=== PATIENT | female | born 1940 | race Caucasian/White ===

== ENCOUNTER 2017-04-03 07:52 | Outpatient (CLI) | payer MEDICARE ==
[2017-04-03 16:17] LABS: BASOPHILS % (AUTO) 0.5 %; EOSINOPHILS # (AUTO) 0.2 10^3/uL (0.0-0.7); EOSINOPHILS % (AUTO) 2.4 %; HCT - HEMATOCRIT 34.6 % (37.0-47.0); HGB - HEMOGLOBIN 11.5 g/dL (12.0-16.0); LYMPHOCYTES # (AUTO) 1.8 10^3/uL (1.5-3.5); LYMPHOCYTES % (AUTO) 20.6 %; MEAN CORPUSCULAR HEMOGLOBIN 29.4 pg (27.0-31.0); MEAN CORPUSCULAR HGB CONC 33.3 g/dL (32.0-36.0); MEAN CORPUSCULAR VOLUME 88.3 fL (81.0-99.0); MEAN PLATELET VOLUME 8.8 fL (7.9-10.8); MONOCYTES # (AUTO) 0.8 10^3/uL (0.0-1.0); MONOCYTES % (AUTO) 8.4 %; NEUTROPHILS # (AUTO) 6.1 10^3/uL (1.5-6.6); NEUTROPHILS % (AUTO) 68.1 %; RED BLOOD COUNT 3.92 10^6/uL (4.20-5.40); RED CELL DISTRIBUTION WIDTH 14.3 % (12.0-15.0); UNCORRECTED WHITE BLOOD COUNT 8.9 x10^3/uL; WHITE BLOOD COUNT 8.9 x10^3/uL (4.8-10.8)
[2017-04-03 16:31] LABS: BILIRUBIN,TOTAL 1.1 mg/dL (0.2-1.0); BUN - BLOOD UREA NITROGEN 18 mg/dL (6-20); CALCIUM 9.5 mg/dL (8.5-10.3); CARBON DIOXIDE - CO2 28 mmol/L (21-32); CHLORIDE 100 mmol/L (101-111); CHOL/HDL RATIO 2.5 (<4.4); CHOLESTEROL 105 mg/dL; CREATININE 0.8 mg/dL (0.4-1.0); GFR - MDRD 69 (>89); GLUCOSE 85 mg/dL (70-100); HDL CHOLESTEROL 42 mg/dL; LDL/HDL RATIO 1.2 (<4.4); SODIUM 138 mmol/L (135-145); TOTAL PROTEIN 7.3 g/dL (6.7-8.2); TRIGLYCERIDES 65 mg/dL; VLDL CHOLESTEROL 13 mg/dL
[2017-04-03 16:39] LABS: HEMOGLOBIN A1C 0.67 g/dL
== END 2017-04-03 07:53 | disposition home or self-care (01) ==
LOC: LAB.R 07:52
PROVIDERS: ATTEND Internal Medicine
DX: E78.2 Mixed hyperlipidemia (principal); E11.65 Type 2 diabetes mellitus with hyperglycemia; E03.9 Hypothyroidism, unspecified; Z79.899 Other long term (current) drug therapy
CPT/HCPCS: 80053; 80061; 83036; 84443; 85025

== ENCOUNTER 2017-04-25 08:15 | Outpatient (CLI) | payer MEDICARE | END 2017-04-25 08:16 | disposition home or self-care (01) | LOC: LAB.R 08:15 | PROVIDERS: ATTEND Internal Medicine | DX: D64.9 Anemia, unspecified (principal) | CPT/HCPCS: 82607; 82728; 83010; 85044; 86880 ==

== ENCOUNTER 2017-04-28 08:15 | Outpatient (CLI) | payer MEDICARE ==
[2017-04-28 10:10] LABS: IMMATURE RETIC FRACTION 0.44; RED BLOOD COUNT 3.88 10^6/uL (4.20-5.40)
== END 2017-04-28 08:16 | disposition home or self-care (01) ==
LOC: LAB.R 08:15
PROVIDERS: ATTEND Internal Medicine
DX: D64.9 Anemia, unspecified (principal)
CPT/HCPCS: 85044; 86880

== ENCOUNTER 2017-07-29 07:58 | Outpatient (CLI) | payer MEDICARE ==
--- NOTE | 2017-07-30 17:21 | Mammography Report ---
DIGITAL SCREENING MAMMOGRAM: 07/29/2017 CLINICAL INDICATION: A 77-year-old for screening. COMPARISON: 07/2015, 09/2013, 01/2011, 01/2010. TECHNIQUE: Routine CC and MLO projections were obtained of the breasts. The breasts again demonstrate heterogeneously dense fibroglandular parenchyma bilaterally. Coarse an d punctate, typically benign calcifications are present. No suspicious masses, clustered microcalcif ications, or regions of architectural distortion are identified. IMPRESSION: BENIGN FINDINGS. RECOMMENDATION: ROUTINE ANNUAL SCREENING UNLESS OTHERWISE CLINICALLY INDICATED. BIRADS CATEGORY: 2, BENIGN FINDINGS. STANDARD QUALIFYING STATEMENTS 1. This examination was reviewed with the aid of Computed-Aided Detection (CAD). 2. A negative or benign imaging report should not delay biopsy if clinically suspicious findings are present. Consider surgical consultation if warranted. More than 5% of cancers are not identified b y imaging. 3. Dense breasts may obscure an underlying neoplasm. JOB #: [id number] EXT JOB #:[id number]
== END 2017-07-29 07:59 | disposition home or self-care (01) ==
LOC: DI 07:58
PROVIDERS: ATTEND Internal Medicine
DX: Z12.31 Encounter for screening mammogram for malignant neoplasm of breast (principal)
CPT/HCPCS: 77067

== ENCOUNTER 2017-08-07 14:19 | Outpatient (CLI) | payer MEDICARE ==
[2017-08-07 13:43] LABS: BASOPHILS # (AUTO) 0.1 10^3/uL (0.0-0.1); BASOPHILS % (AUTO) 0.9 %; EOSINOPHILS # (AUTO) 0.2 10^3/uL (0.0-0.7); HCT - HEMATOCRIT 36.6 % (37.0-47.0); HGB - HEMOGLOBIN 12.4 g/dL (12.0-16.0); LYMPHOCYTES # (AUTO) 1.8 10^3/uL (1.5-3.5); LYMPHOCYTES % (AUTO) 21.7 %; MEAN CORPUSCULAR HEMOGLOBIN 30.2 pg (27.0-31.0); MEAN CORPUSCULAR HGB CONC 33.9 g/dL (32.0-36.0); MEAN PLATELET VOLUME 8.6 fL (7.9-10.8); MONOCYTES # (AUTO) 0.7 10^3/uL (0.0-1.0); MONOCYTES % (AUTO) 8.2 %; NEUTROPHILS # (AUTO) 5.5 10^3/uL (1.5-6.6); NEUTROPHILS % (AUTO) 66.2 %; RED BLOOD COUNT 4.11 10^6/uL (4.20-5.40); RED CELL DISTRIBUTION WIDTH 14.3 % (12.0-15.0); UNCORRECTED WHITE BLOOD COUNT 8.3 x10^3/uL; WHITE BLOOD COUNT 8.3 x10^3/uL (4.8-10.8)
[2017-08-07 14:15] LABS: HEMOGLOBIN A1C 0.77 g/dL
== END 2017-08-07 14:20 | disposition home or self-care (01) ==
LOC: LAB.R 14:19
PROVIDERS: ATTEND Internal Medicine
DX: E11.9 Type 2 diabetes mellitus without complications (principal); D64.9 Anemia, unspecified
CPT/HCPCS: 83036; 85025

== ENCOUNTER 2017-12-04 08:00 | Outpatient (CLI) | payer MEDICARE ==
[2017-12-04 13:39] LABS: HEMOGLOBIN A1C 0.79 g/dL; HEMOGLOBIN A1C % 7.7 % (4.6-6.2)
== END 2017-12-04 08:01 | disposition home or self-care (01) ==
LOC: LAB.R 08:00
PROVIDERS: ATTEND Internal Medicine
DX: E11.9 Type 2 diabetes mellitus without complications (principal); Z79.899 Other long term (current) drug therapy
CPT/HCPCS: 83036

== ENCOUNTER 2018-03-06 05:10 | Outpatient (CLI) | payer MEDICARE | END 2018-03-06 05:11 | disposition critical access hospital (66) | LOC: EMS 05:10 | PROVIDERS: ATTEND Surgery | DX: R00.2 Palpitations (principal) | CPT/HCPCS: A0425; A0427 ==

== ENCOUNTER 2018-03-06 05:44 | Emergency (ER) | payer MEDICARE ==
--- NOTE | 2018-03-06 06:04 | ED Physician Documentation ---
History of Present Illness - Stated complaint Stated Complaint: HEART PALPITATIONS - Chief complaint Chief Complaint: Cardiac - History obtained from History obtained from: Patient - History of Present Illness Timing: Prior to arrival (02:30), Today Pain level max: 0 Pain level now: 0 Improved by: no ameliorating factors Worsened by: no exacerbating factors - Additonal information Additional information: woke at approximately 2:30 AM to use bathroom, felt irregular and rapid palpitations. BIBA and found to be in [place]. she denies CP, SOB, lightheadedness Review of Systems Cardiac: reports: Palpitations. denies: Chest pain / pressure, Pedal edema Respiratory: reports: Reviewed and negative GI: reports: Reviewed and negative Musculoskeletal: denies: Extremity swelling PD PAST MEDICAL HISTORY - Past Medical History Cardiovascular: Hypertension, Coronary artery disease Respiratory: None Endocrine/Autoimmune: Type 2 diabetes, HyPOthyroidism GI: None HEENT: Glaucoma Musculoskeletal: None - Past Surgical History Past Surgical History: Yes Ortho: Arthroscopic surgery Cardiovascular: Coronary stent HEENT: Cataracts, Tonsil/Adenoidectomy - Present Medications Home Medications: Ambulatory Orders Medication Instructions Recorded Confirmed Levothyroxine [Synthroid] 0.1 mcg PO DAILY 09/13/14 03/06/18 Losartan [Cozaar] 50 mg PO BID 09/13/14 03/06/18 Metformin HCl 1,000 mg PO BID 09/13/14 03/06/18 Metoprolol Tartrate 25 mg PO BID 09/13/14 03/06/18 Nitroglycerin 0.4 mg SL ONCE PRN 09/13/14 03/06/18 Aspirin [Adult Low Dose Aspirin EC] 81 mg PO DAILY 12/23/15 03/06/18 Atorvastatin Calcium 40 mg PO DAILY 12/23/15 03/06/18 Glimepiride 2 mg PO BID 12/23/15 03/06/18 Amlodipine Besylate [Norvasc] 2.5 mg PO DAILY 03/06/18 Latanoprost 0.005% Ophth Drops 1 drp [facility] 03/06/18 [Xalatan Ophth Drops] - Allergies Allergies/Adverse Reactions: Allergies Allergy/AdvReac Type Severity Reaction Status Date / Time Penicillins Allergy Edema Verified 03/06/18 05:49 Sulfa (Sulfonamide Allergy Unknown Verified 03/06/18 05:49 Antibiotics) tetanus toxoid, adsorbed Allergy Edema Verified 03/06/18 05:49 azithromycin AdvReac Unknown Verified 03/06/18 05:49 [From Zithromax Z-Denis] codeine AdvReac Hallucinati Verified 03/06/18 05:49 ons - Social History Does the pt smoke?: Yes Smoking Status: Current every day smoker Does the pt drink ETOH?: No Does the pt have substance abuse?: No - Immunizations Immunizations are current?: Yes PD ED PE NORMAL - Vitals Vital signs reviewed: Yes - General General: Alert and oriented X 3, No acute distress, Well developed/nourished - HEENT HEENT: Moist mucous membranes - Neck Neck: Supple, no meningeal sign - Cardiac Cardiac: No murmur - Respiratory Respiratory: No respiratory distress, Clear bilaterally - Abdomen Abdomen: Soft, Non tender - Derm Derm: Normal color, Warm and dry - Extremities Extremities: No edema PD ED PE EXPANDED - Cardiac Cardiac: Irregularly irregular Results - Vitals Vitals: Oxygen O2 Source Room air - EKG (time done) No standard instances Rate: Rate (enter#) (142) Rhythm: Atrial fibrillation [place]verse: Normal Ischemia: ST depression (II, III, aVF, V2-V6) - Labs Labs: Laboratory Tests 03/06/18 03/06/18 03/06/18 06:02 06:02 06:02 WBC 10.1 RBC 4.21 Hgb 12.2 Hct 38.1 MCV 90.5 MCH 29.1 MCHC 32.1 RDW 13.3 Plt Count 258 MPV 7.6 L Neut # 7.1 H Lymph # 1.7 [place] # 1.0 Eos # 0.2 Baso # 0.1 Absolute Nucleated RBC 0.01 Nucleated RBC % 0.1 Sodium 138 Potassium 4.0 Chloride 103 Carbon Dioxide 26 Anion Gap 9.0 BUN 21 H Creatinine 0.9 Estimated GFR (MDRD) 60 L Glucose 155 H Calcium 9.2 Total Bilirubin 1.0 AST 23 ALT 21 Alkaline Phosphatase 93 Troponin I 0.04 Total Protein 7.3 Albumin 3.6 Globulin 3.7 Albumin/Globulin Ratio 1.0 Lipase 25 PD MEDICAL DECISION MAKING - ED course Complexity details: reviewed old records (I evaluated this patient in 2016 with similar presentation, resolved (converted to NSR) with cardizem IV), reviewed results, re-evaluated patient, considered differential, d/w patient ED course: rate was transiently controlled with IV cardizem but did not convert to NSR; gradually increasing HR from 80s back to 120s-130s. Procainamide IV drip over 1 hour started, converted to NSR prior to this being completed. conversion to NSR was associated with resolution of her palpitations Departure - Departure Disposition: 01 Home, Self Care Clinical Impression: Atrial fibrillation Qualifiers: Atrial fibrillation type: paroxysmal Qualified Code(s): I48.0 - Paroxysmal atrial fibrillation Condition: Good Instructions: ED Afib Comments: Follow up with your housing quality standard inspector within 1 week Discharge Date/Time: 03/06/18 08:55
[2018-03-06] MEDS ORDERED: DILTIAZEM 50 MG/10 ML VIAL IVP ONE (06:06)
[2018-03-06 06:11] LABS: BASOPHILS # (AUTO) 0.1 10^3/uL (0.0-0.1); BASOPHILS % (AUTO) 0.9 %; EOSINOPHILS # (AUTO) 0.2 10^3/uL (0.0-0.7); EOSINOPHILS % (AUTO) 2.3 %; HGB - HEMOGLOBIN 12.2 g/dL (12.0-16.0); LYMPHOCYTES # (AUTO) 1.7 10^3/uL (1.5-3.5); LYMPHOCYTES % (AUTO) 16.4 %; MEAN CORPUSCULAR HEMOGLOBIN 29.1 pg (27.0-31.0); MEAN CORPUSCULAR HGB CONC 32.1 g/dL (32.0-36.0); MEAN CORPUSCULAR VOLUME 90.5 fL (81.0-99.0); MEAN PLATELET VOLUME 7.6 fL (7.9-10.8); MONOCYTES % (AUTO) 9.8 %; NEUTROPHILS # (AUTO) 7.1 10^3/uL (1.5-6.6); NEUTROPHILS % (AUTO) 70.6 %; PLT - PLATELET COUNT 258 10^3/uL (130-450); RED BLOOD COUNT 4.21 10^6/uL (4.20-5.40); RED CELL DISTRIBUTION WIDTH 13.3 % (12.0-15.0); WHITE BLOOD COUNT 10.1 x10^3/uL (4.8-10.8)
[2018-03-06 06:20] LABS: ALBUMIN 3.6 g/dL (3.2-5.5); CALCIUM 9.2 mg/dL (8.5-10.3); CREATININE 0.9 mg/dL (0.4-1.0); TOTAL PROTEIN 7.3 g/dL (6.7-8.2)
[2018-03-06] MEDS ORDERED: PROCAINAMIDE 1,000 MG in SODIUM CHLORIDE 0.9% 240 ML IV STA (07:23)
[2018-03-06 08:55] VITALS: BP 104/69
== END 2018-03-06 08:55 | disposition home or self-care (01) ==
LOC: EDUNIT# → ED 05:44
DX: I48.0 Paroxysmal atrial fibrillation (principal); I25.10 Atherosclerotic heart disease of native coronary artery without angina pectoris; I10 Essential (primary) hypertension; Z95.5 Presence of coronary angioplasty implant and graft; E11.9 Type 2 diabetes mellitus without complications; Z79.84 Long term (current) use of oral hypoglycemic drugs; Z79.82 Long term (current) use of aspirin; F17.200 Nicotine dependence, unspecified, uncomplicated
CPT/HCPCS: 36415; 80053; 83690; 84484; 85025; 93005; 96374; 96375; 99284; J2690

== ENCOUNTER 2018-03-10 08:13 | Outpatient (CLI) | payer MEDICARE | END 2018-03-10 08:14 | disposition critical access hospital (66) | LOC: EMS 08:13 | PROVIDERS: ATTEND Surgery | DX: R00.2 Palpitations (principal); R53.1 Weakness; R11.0 Nausea | CPT/HCPCS: A0425; A0427 ==

== ENCOUNTER 2018-03-10 08:29 | Emergency (ER) | payer MEDICARE ==
[2018-03-10] MEDS ORDERED: DILTIAZEM 50 MG/10 ML VIAL IVP ONE (08:37)
--- NOTE | 2018-03-10 08:42 | ED Physician Documentation ---
History of Present Illness - Stated complaint Stated Complaint: AFIB - Chief complaint Chief Complaint: Cardiac - History obtained from History obtained from: Patient - History of Present Illness Timing: Enter time (633), Today - Additonal information Additional information: 78-year-old female with a history of atrial fibrillation with rapid ventricular response has developed acute palpitations this morning that awoke her at 630. She has not had shortness of breath with this she did have some diaphoresis to her palms only she denies any chest pain. She recognized her symptoms similar to what she had last week and called the ambulance. She was seen here in the emergency department 4 days ago with rapid atrial fibrillation received a dose of diltiazem which slowed her rate and she converted part way into a procainamide drip. She has been asymptomatic since. She states that she has developed palpitations today but does not otherwise feel ill. Review of Systems Constitutional: denies: Fever, Chills Eyes: denies: Decreased vision Ears: denies: Ear pain Cardiac: reports: Palpitations. denies: Chest pain / pressure Respiratory: denies: Dyspnea, Cough GI: denies: Abdominal Pain, Nausea, Vomiting : reports: Frequency. denies: Dysuria Skin: denies: Rash Musculoskeletal: denies: Neck pain, Back pain, Extremity swelling Neurologic: denies: Generalized weakness, Focal weakness, Numbness Psychiatric: denies: Depressed PD PAST MEDICAL HISTORY - Past Medical History Cardiovascular: Hypertension, Coronary artery disease Respiratory: None Endocrine/Autoimmune: Type 2 diabetes, HyPOthyroidism GI: None HEENT: Glaucoma Musculoskeletal: None - Past Surgical History Past Surgical History: Yes Ortho: Arthroscopic surgery Cardiovascular: Coronary stent HEENT: Cataracts, Tonsil/Adenoidectomy - Present Medications Home Medications: Ambulatory Orders Medication Instructions Recorded Confirmed Levothyroxine [Synthroid] 0.1 mcg PO DAILY 09/13/14 03/06/18 Losartan [Cozaar] 50 mg PO BID 09/13/14 03/06/18 Metformin HCl 1,000 mg PO BID 09/13/14 03/06/18 Metoprolol Tartrate 25 mg PO BID 09/13/14 03/06/18 Nitroglycerin 0.4 mg SL ONCE PRN 09/13/14 03/06/18 Aspirin [Adult Low Dose Aspirin EC] 81 mg PO DAILY 12/23/15 03/06/18 Atorvastatin Calcium 40 mg PO DAILY 12/23/15 03/06/18 Glimepiride 2 mg PO BID 12/23/15 03/06/18 Amlodipine Besylate [Norvasc] 2.5 mg PO DAILY 03/06/18 Latanoprost 0.005% Ophth Drops 1 drp [facility] 03/06/18 [Xalatan Ophth Drops] Ciprofloxacin HCl [Cipro] 500 mg PO BID #14 tablet 03/10/18 - Allergies Allergies/Adverse Reactions: Allergies Allergy/AdvReac Type Severity Reaction Status Date / Time Penicillins Allergy Edema Verified 03/06/18 05:49 Sulfa (Sulfonamide Allergy Unknown Verified 03/06/18 05:49 Antibiotics) tetanus toxoid, adsorbed Allergy Edema Verified 03/06/18 05:49 azithromycin AdvReac Unknown Verified 03/06/18 05:49 [From Zithromax Z-Denis] codeine AdvReac Hallucinati Verified 03/06/18 05:49 ons - Social History Does the pt smoke?: Yes Smoking Status: Current every day smoker Does the pt drink ETOH?: No Does the pt have substance abuse?: No - Immunizations Immunizations are current?: Yes PD ED PE NORMAL - Vitals Vital signs reviewed: Yes - General General: Alert and oriented X 3, No acute distress, Well developed/nourished - HEENT HEENT: Atraumatic, PERRL, EOMI - Neck Neck: Supple, no meningeal sign, No bony TTP - Cardiac Cardiac: No murmur, Other (rapid irregular rate) - Respiratory Respiratory: No respiratory distress, Clear bilaterally - Abdomen Abdomen: Soft, Non tender - Back Back: No CVA TTP, No spinal TTP - Derm Derm: Normal color, Warm and dry, No rash - Extremities Extremities: No deformity, No edema - Neuro Neuro: No motor deficit, No sensory deficit Eye Opening: Spontaneous Motor: Obeys Commands Verbal: Oriented GCS Score: 15 - Psych Psych: Normal mood, Normal affect Results - Vitals Vitals: Vital Signs - 24 hr 03/10/18 03/10/18 03/10/18 08:32 08:35 08:56 Temperature 36.6 C Heart Rate 120 H 122 H Respiratory 16 18 Rate Blood Pressure 135/97 H 152/90 H Blood Pressure 152/90 H [Left] Blood Pressure 135/97 H [Right] O2 Saturation 97 96 05/22/18 05/22/18 05/22/18 09:00 09:05 09:10 Temperature Heart Rate 75 58 L 57 L Respiratory 16 16 16 Rate Blood Pressure 112/56 L 110/59 L 117/60 Blood Pressure [Left] Blood Pressure [Right] O2 Saturation 98 98 98 03/10/18 03/10/18 03/10/18 09:15 09:20 09:30 Temperature Heart Rate 58 L 60 62 Respiratory 16 16 18 Rate Blood Pressure 124/65 127/76 141/72 H Blood Pressure [Left] Blood Pressure [Right] O2 Saturation 98 96 97 03/10/18 03/10/18 03/10/18 09:45 10:00 10:10 Temperature Heart Rate 70 80 65 Respiratory 16 17 16 Rate Blood Pressure 126/69 110/81 H 136/79 H Blood Pressure [Left] Blood Pressure [Right] O2 Saturation 98 97 03/10/18 03/10/18 03/10/18 10:15 10:20 10:25 Temperature Heart Rate 70 79 76 Respiratory 18 16 16 Rate Blood Pressure 135/67 H 138/65 H 136/54 H Blood Pressure [Left] Blood Pressure [Right] O2 Saturation Oxygen O2 Source Room air - Labs Labs: Laboratory Tests 03/10/18 03/10/18 03/10/18 08:46 08:46 08:46 WBC 9.1 RBC 4.06 L Hgb 12.2 Hct 36.4 L MCV 89.6 MCH 30.1 MCHC 33.6 RDW 13.2 Plt Count 265 MPV 7.4 L Neut # 6.9 H Lymph # 1.4 L [place] # 0.6 Eos # 0.2 Baso # 0.1 Absolute Nucleated RBC 0.00 Nucleated RBC % 0.0 Sodium 135 Potassium 4.1 Chloride 97 L Carbon Dioxide 28 Anion Gap 10.0 BUN 20 Creatinine 1.1 H Estimated GFR (MDRD) 48 L Glucose 315 H Calcium 9.3 Total Bilirubin 0.8 AST 24 ALT 21 Alkaline Phosphatase 87 Troponin I < 0.04 B-Natriuretic Peptide Total Protein 7.3 Albumin 3.7 Globulin 3.6 Albumin/Globulin Ratio 1.0 Lipase 23 Urine Color Urine Clarity Urine pH Ur Specific [place] Urine Protein Urine Glucose (UA) Urine Ketones Urine Occult Blood Urine Nitrite Urine Bilirubin Urine Urobilinogen Ur Leukocyte Esterase Urine RBC Urine WBC Ur Squamous Epith Cells Urine Bacteria Urine Casts Ur Microscopic Review Urine Culture Comments 03/10/18 03/10/18 08:46 10:05 WBC RBC Hgb Hct MCV MCH MCHC RDW Plt Count MPV Neut # Lymph # [place] # Eos # Baso # Absolute Nucleated RBC Nucleated RBC % Sodium Potassium Chloride Carbon Dioxide Anion Gap BUN Creatinine Estimated GFR (MDRD) Glucose Calcium Total Bilirubin AST ALT Alkaline Phosphatase Troponin I B-Natriuretic Peptide 281 H Total Protein Albumin Globulin Albumin/Globulin Ratio Lipase Urine Color YELLOW Urine Clarity HAZY Urine pH 5.5 Ur Specific [place] 1.025 Urine Protein TRACE Urine Glucose (UA) 500 H Urine Ketones NEGATIVE Urine Occult Blood NEGATIVE Urine Nitrite NEGATIVE Urine Bilirubin NEGATIVE Urine Urobilinogen 0.2 (NORMAL) Ur Leukocyte Esterase SMALL H Urine RBC 0-5 Urine WBC >25 H Ur Squamous Epith Cells FEW Squamous Urine Bacteria Moderate H Urine Casts 0-2 Fine Granular Ur Microscopic Review INDICATED Urine Culture Comments INDICATED Procedures - IVC sono (time) 1020 Bedside IVC sono: IVC measures (cm) (0.77), IVC collapsed c insp (cm) (complete) , Dehydration (est 2+ liters deficit) PD MEDICAL DECISION MAKING - ED course Complexity details: reviewed results, re-evaluated patient, considered differential, d/w patient, d/w family ED course: 78-year-old female has come back to the emergency department this morning with atrial fibrillation with rapid ventricular response that she noted early this morning. She is found to have a rate in the 150-170 range and intravenous diltiazem was administered shortly after arrival. This does slow her rate extensively and drops her blood pressure extensively. She had conversion on procainamide previously and a procainamide drip is begun. Her blood glucose is found to be 365 and for this reason I interrogated her inferior vena cava and found her to be significantly dehydrated. Intravenous saline is begun as well. She is found to have UTI and asks for inspection of the vaginal area for a mass protruding. The exam shows a cystocele that is not protruding while supine. urinary tract infection possibly related to cystocele leading to hyperglycemic diuresis and dehydration leading to tachycardia with afib. She does convert on the procainamide. Departure - Departure Disposition: 01 Home, Self Care Clinical Impression: Dehydration Atrial fibrillation Qualifiers: Atrial fibrillation type: paroxysmal Qualified Code(s): I48.0 - Paroxysmal atrial fibrillation Urinary tract infection Qualifiers: Urinary tract infection type: acute cystitis Hematuria presence: without hematuria Qualified Code(s): N30.00 - Acute cystitis without hematuria Cystocele Qualifiers: Cystocele location: midline Qualified Code(s): N81.11 - Cystocele, midline Condition: Stable Instructions: ED Afib, ED Dehydration, ED UTI Cystitis Female Follow-Up: Chidi Mckeon MD [Primary Care Provider] - Yenny Mckeon DO [Provider Admit Priv/Credential] - Prescriptions: Ciprofloxacin HCl [Cipro] 500 mg PO BID #14 tablet
[2018-03-10 08:50] LABS: BASOPHILS # (AUTO) 0.1 10^3/uL (0.0-0.1); EOSINOPHILS # (AUTO) 0.2 10^3/uL (0.0-0.7); EOSINOPHILS % (AUTO) 2.4 %; HGB - HEMOGLOBIN 12.2 g/dL (12.0-16.0); LYMPHOCYTES # (AUTO) 1.4 10^3/uL (1.5-3.5); LYMPHOCYTES % (AUTO) 14.9 %; MEAN CORPUSCULAR HEMOGLOBIN 30.1 pg (27.0-31.0); MEAN CORPUSCULAR HGB CONC 33.6 g/dL (32.0-36.0); MEAN CORPUSCULAR VOLUME 89.6 fL (81.0-99.0); MEAN PLATELET VOLUME 7.4 fL (7.9-10.8); MONOCYTES # (AUTO) 0.6 10^3/uL (0.0-1.0); MONOCYTES % (AUTO) 6.5 %; NEUTROPHILS # (AUTO) 6.9 10^3/uL (1.5-6.6); NEUTROPHILS % (AUTO) 75.2 %; PLT - PLATELET COUNT 265 10^3/uL (130-450); RED BLOOD COUNT 4.06 10^6/uL (4.20-5.40); RED CELL DISTRIBUTION WIDTH 13.2 % (12.0-15.0); WHITE BLOOD COUNT 9.1 x10^3/uL (4.8-10.8)
[2018-03-10] MEDS ORDERED: diltiaZEM INJ 5 MG/ML VIAL IVP ONE (09:00)
[2018-03-10 09:05] LABS: ALBUMIN 3.7 g/dL (3.2-5.5); BILIRUBIN,TOTAL 0.8 mg/dL (0.2-1.0); CALCIUM 9.3 mg/dL (8.5-10.3); CREATININE 1.1 mg/dL (0.4-1.0); TOTAL PROTEIN 7.3 g/dL (6.7-8.2)
[2018-03-10] MEDS ORDERED: PROCAINAMIDE 1,000 MG in SODIUM CHLORIDE 0.9% 240 ML IV STA ×2 (09:29→09:43)
[2018-03-10 10:13] LABS: BILIRUBIN,URINE NEGATIVE (NEGATIVE); GLUCOSE, URINE (UA) 500 mg/dL (NEGATIVE); KETONES,URINE (UA) NEGATIVE (NEGATIVE); LEUKOCYTE ESTERASE, URINE SMALL (NEGATIVE); NITRITE,URINE NEGATIVE (NEGATIVE); OCCULT BLOOD,URINE NEGATIVE (NEGATIVE); PH,URINE 5.5 PH (5.0-7.5); PROTEIN,URINE TRACE mg/dL (NEGATIVE); UROBILINOGEN,URINE 0.2 (NORMAL) E.U./dL (NORMAL)
[2018-03-10 10:14] LABS: CLARITY,URINE HAZY (CLEAR)
[2018-03-10 10:23] LABS: BACTERIA,URINE Moderate /HPF (None Seen); RBC,URINE 0-5 /HPF (0-5); SQUAMOUS EPITHELIAL CELL,UR FEW Squamous (<= Few)
[2018-03-10 10:24] LABS: CASTS, URINE 0-2 Fine Granular /LPF
[2018-03-10] MEDS ORDERED: SODIUM CHLORIDE 0.9% 1,000 ML IV ONE (10:30)
[2018-03-10] MEDS ORDERED: cefTRIAXone 1 GM in SODIUM CHLORIDE 0.9% MINIBAG 100 ML IV STA (10:32)
[2018-03-10 13:46] VITALS: BP 149/63
== END 2018-03-10 12:06 | disposition home or self-care (01) ==
LOC: EDUNIT# → ED 08:29
DX: I48.0 Paroxysmal atrial fibrillation (principal); N30.00 Acute cystitis without hematuria; N81.11 Cystocele, midline; E86.0 Dehydration; I25.10 Atherosclerotic heart disease of native coronary artery without angina pectoris; E11.9 Type 2 diabetes mellitus without complications; E03.9 Hypothyroidism, unspecified; R00.0 Tachycardia, unspecified; F17.200 Nicotine dependence, unspecified, uncomplicated; Z79.82 Long term (current) use of aspirin; Z79.84 Long term (current) use of oral hypoglycemic drugs; Z95.5 Presence of coronary angioplasty implant and graft
CPT/HCPCS: 36415; 80053; 81001; 83690; 83880; 84484; 85025; 87086; 93005; 96365; 96367; 96375; 99284; 99285; J2690; 81003

== ENCOUNTER 2018-03-13 10:28 | Outpatient (CLI) | payer MEDICARE ==
[2018-03-13 14:00] LABS: HB2 TOTAL 12.6 g/dL; HEMOGLOBIN A1C 0.78 g/dL; HEMOGLOBIN A1C % 7.8 % (4.6-6.2)
== END 2018-03-13 10:29 | disposition home or self-care (01) ==
LOC: LAB.R 10:28
PROVIDERS: ATTEND Internal Medicine
DX: E11.9 Type 2 diabetes mellitus without complications (principal)
CPT/HCPCS: 83036

== ENCOUNTER 2018-06-24 15:25 | Outpatient (CLI) | payer MEDICARE ==
[2018-06-24 17:18] LABS: HB2 TOTAL 12.9 g/dL; HEMOGLOBIN A1C 0.72 g/dL; HEMOGLOBIN A1C % 7.3 % (4.6-6.2)
== END 2018-06-24 15:26 | disposition home or self-care (01) ==
LOC: LAB.R 15:25
PROVIDERS: ATTEND Internal Medicine
DX: E11.9 Type 2 diabetes mellitus without complications (principal)
CPT/HCPCS: 83036

== ENCOUNTER 2018-07-27 08:00 | Outpatient (CLI) | payer MEDICARE | END 2018-07-27 08:01 | disposition home or self-care (01) | LOC: LAB.R 08:00 | PROVIDERS: ATTEND Internal Medicine | DX: N30.00 Acute cystitis without hematuria (principal) | CPT/HCPCS: 87086; 87181 ==

== ENCOUNTER 2018-11-09 08:00 | Outpatient (CLI) | payer MEDICARE ==
[2018-11-09 15:33] LABS: CALCIUM 9.2 mg/dL (8.5-10.3); CREATININE 0.9 mg/dL (0.4-1.0)
== END 2018-11-09 23:59 | disposition home or self-care (01) ==
LOC: LAB.R 08:00
PROVIDERS: ATTEND Internal Medicine
DX: I10 Essential (primary) hypertension (principal)
CPT/HCPCS: 80048

== ENCOUNTER 2018-11-24 08:00 | Outpatient (CLI) | payer MEDICARE | END 2018-11-24 23:59 | disposition home or self-care (01) | LOC: LAB.R 08:00 | PROVIDERS: ATTEND Internal Medicine | DX: R30.0 Dysuria (principal) | CPT/HCPCS: 87086 ==

== ENCOUNTER 2018-12-07 08:00 | Outpatient (CLI) | payer MEDICARE ==
[2018-12-07 11:32] LABS: CALCIUM 9.4 mg/dL (8.5-10.3); CREATININE 0.9 mg/dL (0.4-1.0)
== END 2018-12-07 08:01 | disposition home or self-care (01) ==
LOC: LAB.R 08:00
PROVIDERS: ATTEND Internal Medicine
DX: I10 Essential (primary) hypertension (principal)
CPT/HCPCS: 80048

== ENCOUNTER 2019-02-10 08:00 | Outpatient (CLI) | payer MEDICARE ==
[2019-02-10 13:18] LABS: CHOL/HDL RATIO 2.6 (<4.4); CHOLESTEROL 103 mg/dL; HDL CHOLESTEROL 39 mg/dL; LDL CHOLESTEROL,CALCULATED 51 mg/dL; LDL/HDL RATIO 1.3 (<4.4); VLDL CHOLESTEROL 13 mg/dL
[2019-02-10 13:23] LABS: HB2 TOTAL 12.5 g/dL; HEMOGLOBIN A1C 0.77 g/dL; HEMOGLOBIN A1C % 7.8 % (4.6-6.2)
== END 2019-02-10 23:59 | disposition home or self-care (01) ==
LOC: LAB.N 08:00
PROVIDERS: ATTEND Internal Medicine
DX: E11.9 Type 2 diabetes mellitus without complications (principal); E03.9 Hypothyroidism, unspecified
CPT/HCPCS: 36415; 80061; 83036; 83721; 84443

== ENCOUNTER 2019-07-10 11:07 | Outpatient (CLI) | payer MEDICARE ==
[2019-07-10 12:03] LABS: BASOPHILS % (AUTO) 0.4 %; EOSINOPHILS # (AUTO) 0.1 10^3/uL (0.0-0.7); EOSINOPHILS % (AUTO) 1.1 %; HGB - HEMOGLOBIN 11.7 g/dL (12.0-16.0); LYMPHOCYTES # (AUTO) 1.6 10^3/uL (1.5-3.5); LYMPHOCYTES % (AUTO) 14.5 %; MEAN CORPUSCULAR HGB CONC 32.4 g/dL (32.0-36.0); MEAN CORPUSCULAR VOLUME 95.8 fL (81.0-99.0); MEAN PLATELET VOLUME 10.1 fL (7.9-10.8); MONOCYTES % (AUTO) 8.6 %; NEUTROPHILS # (AUTO) 8.5 10^3/uL (1.5-6.6); PLT - PLATELET COUNT 184 10^3/uL (130-450); RED BLOOD COUNT 3.77 10^6/uL (4.20-5.40); RED CELL DISTRIBUTION WIDTH 12.8 % (12.0-15.0); WHITE BLOOD COUNT 11.3 x10^3/uL (4.8-10.8)
[2019-07-10 12:19] LABS: CALCIUM 9.5 mg/dL (8.5-10.3); CRP - C-REACTIVE PROTEIN 2.7 mg/dL (0-1.0)
[2019-07-10 12:23] LABS: HEMOGLOBIN A1C 0.7 g/dL; HEMOGLOBIN A1C % 7.5 % (4.6-6.2)
--- NOTE | 2019-07-11 15:38 | XRAY Report ---
Reason: RIGHT FOOT PAIN Procedure Date: 07/10/2019 Accession Number: [id number] / [id number] Procedure: XR - Foot 3 View RT CPT Code: FULL RESULT: EXAM: RIGHT FOOT RADIOGRAPHY EXAM DATE: 07/10/2019 11:43 AM. CLINICAL HISTORY: RIGHT FOOT PAIN. COMPARISON: XR FOOT COMPLETE MIN 3 VIEWS 06/20/2011 12:22 PM. TECHNIQUE: 3 views. FINDINGS: Bones: Small ossicle adjacent to the dorsomedial talar head, accessory ossicle versus old injury. No evidence of acute fracture. Mild degenerative joint disease first MTP joint. Joints: See above Soft Tissues: Calcification of the plantar fascia, stable since prior. Mild soft tissue swelling hindfoot and ankle. IMPRESSION: 1. Calcification of the plantar fascia appears stable, old plantar fasciitis versus old plantar fascia injury. 2. No acute fracture. 3. 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 RADIA
--- NOTE | 2019-07-11 15:38 | XRAY Report ---
Reason: RIGHT ANKLE PAIN Procedure Date: 07/10/2019 Accession Number: [id number] / [id number] Procedure: XR - Ankle 3 View RT CPT Code: FULL RESULT: EXAM: RIGHT ANKLE RADIOGRAPHY EXAM DATE: 07/10/2019 11:45 AM. CLINICAL HISTORY: RIGHT ANKLE PAIN. COMPARISON: FOOT 3 VIEW RT 07/10/2019 11:25 AM. TECHNIQUE: 3 views. FINDINGS: Bones: Small ossicle adjacent to the dorsal medial margin of the talar head. Either accessory ossicle or old injury. No acute fracture. Alignment normal. Joints: Mild degenerative joint disease of the ankle with small marginal osteophytes. Soft Tissues: Calcification of the plantar fascia, stable. Mild soft tissue swelling at the ankle. IMPRESSION: 1. Small ossicle adjacent to the dorsomedial talar head, posttraumatic versus accessory ossicle. 2. Calcification plantar fascia, stable since prior. Differential includes chronic plantar fasciitis versus old plantar fascia injury. 3. Mild degenerative joint disease of the ankle. 4. Soft tissue swelling. RADIA
== END 2019-07-10 11:08 | disposition home or self-care (01) ==
LOC: LAB 11:07
PROVIDERS: ATTEND Family Medicine
DX: E11.9 Type 2 diabetes mellitus without complications (principal); M10.9 Gout, unspecified; M25.571 Pain in right ankle and joints of right foot; M79.671 Pain in right foot
CPT/HCPCS: 36415; 80048; 83036; 84550; 85025; 85651; 86140

== ENCOUNTER 2019-11-16 09:59 | Outpatient (CLI) | payer MEDICARE ==
[2019-11-16 12:22] LABS: BASOPHILS % (AUTO) 0.5 %; EOSINOPHILS # (AUTO) 0.2 10^3/uL (0.0-0.7); EOSINOPHILS % (AUTO) 2.1 %; HGB - HEMOGLOBIN 11.9 g/dL (12.0-16.0); LYMPHOCYTES # (AUTO) 1.7 10^3/uL (1.5-3.5); LYMPHOCYTES % (AUTO) 21.2 %; MEAN CORPUSCULAR HEMOGLOBIN 31.2 pg (27.0-31.0); MEAN CORPUSCULAR HGB CONC 31.5 g/dL (32.0-36.0); MEAN PLATELET VOLUME 10.7 fL (7.9-10.8); MONOCYTES # (AUTO) 0.7 10^3/uL (0.0-1.0); MONOCYTES % (AUTO) 8.2 %; NEUTROPHILS # (AUTO) 5.3 10^3/uL (1.5-6.6); NEUTROPHILS % (AUTO) 67.5 %; PLT - PLATELET COUNT 195 10^3/uL (130-450); RED BLOOD COUNT 3.82 10^6/uL (4.20-5.40); WHITE BLOOD COUNT 7.9 x10^3/uL (4.8-10.8)
[2019-11-16 12:35] LABS: HEMOGLOBIN A1C 0.74 g/dL; HEMOGLOBIN A1C % 7.8 % (4.6-6.2)
[2019-11-16 12:41] LABS: ALBUMIN/GLOBULIN RATIO 1.3 (1.0-2.2); ALKALINE PHOSPHATASE 77 IU/L (42-121); ALT ALANINE AMINOTRANSFERASE 19 IU/L (10-60); AST ASPARTATE AMINOTRANSFERASE 21 IU/L (10-42); BILIRUBIN,TOTAL 0.9 mg/dL (0.2-1.0); BUN - BLOOD UREA NITROGEN 26 mg/dL (6-20); CALCIUM 9.4 mg/dL (8.5-10.3); CARBON DIOXIDE - CO2 28 mmol/L (21-32); CHLORIDE 103 mmol/L (101-111); CHOL/HDL RATIO 2.8 (<4.4); CHOLESTEROL 111 mg/dL; GFR - MDRD 53 (>89); GLUCOSE 241 mg/dL (70-100); HDL CHOLESTEROL 40 mg/dL; LDL CHOLESTEROL,CALCULATED 44 mg/dL; LDL/HDL RATIO 1.1 (<4.4); SODIUM 138 mmol/L (135-145); TOTAL PROTEIN 7.1 g/dL (6.7-8.2); URIC ACID 5.1 mg/dL (2.6-7.2); VLDL CHOLESTEROL 27 mg/dL
== END 2019-11-16 23:59 | disposition home or self-care (01) ==
LOC: LAB.WCP 09:59
PROVIDERS: ATTEND Family Medicine
DX: E11.9 Type 2 diabetes mellitus without complications (principal); M10.9 Gout, unspecified
CPT/HCPCS: 36415; 80053; 80061; 83036; 83721; 84443; 84550; 85025

== ENCOUNTER 2021-02-22 08:00 | Outpatient (CLI) | payer MEDICARE ==
[2021-02-22 12:31] LABS: BASOPHILS # (AUTO) 0.1 10^3/uL (0.0-0.1); BASOPHILS % (AUTO) 0.6 %; EOSINOPHILS # (AUTO) 0.3 10^3/uL (0.0-0.7); EOSINOPHILS % (AUTO) 3.4 %; HCT - HEMATOCRIT 39.1 % (37.0-47.0); HGB - HEMOGLOBIN 12.1 g/dL (12.0-16.0); LYMPHOCYTES # (AUTO) 1.5 10^3/uL (1.5-3.5); LYMPHOCYTES % (AUTO) 16.5 %; MEAN CORPUSCULAR HEMOGLOBIN 30.5 pg (27.0-31.0); MEAN CORPUSCULAR HGB CONC 30.9 g/dL (32.0-36.0); MEAN CORPUSCULAR VOLUME 98.5 fL (81.0-99.0); MEAN PLATELET VOLUME 10.7 fL (7.9-10.8); MONOCYTES # (AUTO) 0.7 10^3/uL (0.0-1.0); MONOCYTES % (AUTO) 7.3 %; NEUTROPHILS # (AUTO) 6.4 10^3/uL (1.5-6.6); NEUTROPHILS % (AUTO) 71.6 %; PLT - PLATELET COUNT 235 10^3/uL (130-450); RED BLOOD COUNT 3.97 10^6/uL (4.20-5.40); RED CELL DISTRIBUTION WIDTH 12.8 % (12.0-15.0)
[2021-02-22 13:02] LABS: THYROID STIMULATING HORMONE 2.22 uIU/mL (0.34-5.60)
[2021-02-22 13:17] LABS: ALBUMIN 4.6 g/dL (3.2-5.5); ALBUMIN/GLOBULIN RATIO 1.4 (1.0-2.2); ALKALINE PHOSPHATASE 69 IU/L (42-121); ALT ALANINE AMINOTRANSFERASE 22 IU/L (10-60); AST ASPARTATE AMINOTRANSFERASE 23 IU/L (10-42); BILIRUBIN,TOTAL 0.7 mg/dL (0.2-1.0); BUN - BLOOD UREA NITROGEN 37 mg/dL (6-20); CALCIUM 10.3 mg/dL (8.5-10.3); CARBON DIOXIDE - CO2 27 mmol/L (21-32); CHLORIDE 103 mmol/L (101-111); CHOLESTEROL 116 mg/dL; CREATININE 1.2 mg/dL (0.4-1.0); GFR - MDRD 43 (>89); GLUCOSE 308 mg/dL (70-100); HDL CHOLESTEROL 39 mg/dL; LDL CHOLESTEROL,CALCULATED 46 mg/dL; LDL/HDL RATIO 1.2 (<4.4); POTASSIUM 5.4 mmol/L (3.5-5.0); SODIUM 138 mmol/L (135-145); TOTAL PROTEIN 7.8 g/dL (6.7-8.2); TRIGLYCERIDES 156 mg/dL; VLDL CHOLESTEROL 31 mg/dL
[2021-02-22 13:20] LABS: ESTIMATED AVERAGE GLUCOSE 200 mg/dL (70-100); HEMOGLOBIN A1c% 8.6 % (4.27-6.07)
[2021-02-22 13:25] LABS: CREATININE,URINE 206.9 mg/dL; MICROALBUM/CREATININE RATIO,UR 23.2 ug/mg (<30.0); MICROALBUMIN,URINE 4.8 mg/dL (0-300.0)
== END 2021-02-22 23:59 | disposition home or self-care (01) ==
LOC: LAB.WCP 08:00
PROVIDERS: ATTEND Family Medicine
DX: E11.9 Type 2 diabetes mellitus without complications (principal)
CPT/HCPCS: 36415; 80053; 80061; 82043; 82570; 83036; 83721; 84443; 84550; 85025

== ENCOUNTER 2021-04-26 08:00 | Outpatient (CLI) | payer MEDICARE ==
[2021-04-26 17:58] LABS: CALCIUM 9.8 mg/dL (8.5-10.3); CREATININE 1.1 mg/dL (0.4-1.0); POTASSIUM 4.8 mmol/L (3.5-5.0)
[2021-04-26 20:00] LABS: ESTIMATED AVERAGE GLUCOSE 186 mg/dL (70-100); HEMOGLOBIN A1c% 8.1 % (4.27-6.07)
== END 2021-04-26 23:59 | disposition home or self-care (01) ==
LOC: LAB.WCP 08:00
PROVIDERS: ATTEND Family Medicine
DX: E11.9 Type 2 diabetes mellitus without complications (principal)
CPT/HCPCS: 36415; 80048; 83036

== ENCOUNTER 2021-05-01 08:11 | Outpatient (CLI) | payer MEDICARE | END 2021-05-01 08:12 | disposition critical access hospital (66) | LOC: EMS 08:11 | DX: R42 Dizziness and giddiness (principal); I49.8 Other specified cardiac arrhythmias; R61 Generalized hyperhidrosis | CPT/HCPCS: A0425; A0427 ==

== ENCOUNTER 2021-05-01 08:23 | Emergency (ER) | payer MEDICARE ==
--- NOTE | 2021-05-01 09:17 | ED Physician Documentation ---
PD HPI HEENT - Stated complaint Stated Complaint: VERTIGO - Chief complaint Chief Complaint: Neuro - History obtained from History obtained from: Patient - History of Present Illness Timing - onset: How many weeks ago (1) Timing - duration: Weeks (1) Timing - details: Abrupt onset, Intermittant (worse with head movement, less easily provoked initially but now occurring with slight movements. Also having some frontal pressure feeling with the vertigo and some chest pressure at times.), Waxing and waning Worsens: Position (head movements and getting up.) Associated symptoms: No: Fever, Congestion, Rhinorrhea Recently seen: Clinic (PCP last week with referral for [place] but pt not able to get in until another cople weeks. No other treatments offerred.) Review of Systems Constitutional: denies: Fever, Chills Eyes: denies: Decreased vision, Photophobia Ears: denies: Loss of hearing, Ear pain, Tinnitus/ringing Nose: denies: Rhinorrhea / runny nose, Congestion Throat: denies: Sore throat Cardiac: reports: Chest pain / pressure. denies: Palpitations Respiratory: reports: Dyspnea. denies: Cough GI: denies: Nausea, Vomiting Skin: denies: Rash, Lesions Neurologic: denies: Altered mental status, Headache PD PAST MEDICAL HISTORY - Past Medical History Past Medical History: Yes Cardiovascular: Hypertension, High cholesterol, Coronary artery disease, Atrial fibrillation Respiratory: None Neuro: Tremors Endocrine/Autoimmune: Type 2 diabetes, HyPOthyroidism GI: GERD PRODUCT SAFETY LEAD: None : None HEENT: Glaucoma Psych: None Musculoskeletal: None Derm: None - Past Surgical History Past Surgical History: Yes Ortho: Arthroscopic surgery Cardiovascular: Coronary stent HEENT: Cataracts, Tonsil/Adenoidectomy - Present Medications Home Medications: Ambulatory Orders Medication Instructions Recorded Confirmed Levothyroxine [Synthroid] 88 mcg PO DAILY 09/13/14 05/01/21 Losartan [Cozaar] 50 mg PO BID 09/13/14 05/01/21 Metformin HCl 1,000 mg PO BID 09/13/14 05/01/21 Metoprolol Tartrate 50 mg PO BID 09/13/14 05/01/21 Nitroglycerin 0.4 mg SL ONCE PRN 09/13/14 05/01/21 Aspirin [Adult Low Dose Aspirin EC] 81 mg PO DAILY 12/23/15 05/01/21 Atorvastatin Calcium 40 mg PO HS 12/23/15 05/01/21 Glimepiride 2 mg PO DAILY 12/23/15 05/01/21 Amlodipine Besylate [Norvasc] 2.5 mg PO DAILY 03/06/18 05/01/21 Latanoprost 0.005% Ophth Drops 1 drp EACHEYE ACHS 03/06/18 05/01/21 [Xalatan Ophth Drops] Meclizine [Antivert] 25 mg PO Q6H PRN #30 tablet 05/01/21 Omeprazole [PriLOSEC] 20 mg PO DAILY 05/01/21 05/01/21 Primidone [Mysoline] 50 mg PO HS 05/01/21 05/01/21 Spironolactone [Aldactone] 25 mg PO DAILY 05/01/21 05/01/21 Travoprost [Travatan Z] 1 drops OP HS 05/01/21 05/01/21 dexAMETHasone [Decadron] 4 mg PO DAILY #5 tablet 05/01/21 - Allergies Allergies/Adverse Reactions: Allergies Allergy/AdvReac Type Severity Reaction Status Date / Time Penicillins Allergy Edema Verified 05/01/21 08:29 Sulfa (Sulfonamide Allergy Unknown Verified 05/01/21 08:29 Antibiotics) tetanus toxoid, adsorbed Allergy Edema Verified 05/01/21 08:29 azithromycin AdvReac Unknown Verified 05/01/21 08:29 [From Zithromax Z-Denis] codeine AdvReac Hallucinati Verified 05/01/21 08:29 ons - Social History Does the pt smoke?: Yes Smoking Status: Never smoker Does the pt drink ETOH?: No Does the pt have substance abuse?: No - Immunizations Immunizations are current?: Yes - POLST Patient has POLST: No PD ED PE NORMAL - Vitals Vital signs reviewed: Yes - General General: Alert and oriented X 3, No acute distress, Well developed/nourished - HEENT HEENT: PERRL, EOMI (mild nystagmus to the left with EOMs. ) - Neck Neck: Supple, no meningeal sign, No adenopathy, No bruit - Cardiac Cardiac: RRR, No murmur - Respiratory Respiratory: Clear bilaterally - Derm Derm: Normal color, Warm and dry, No rash - Extremities Extremities: No tenderness to palpate, Normal ROM s pain, Other - Neuro Neuro: Alert and oriented X 3, berry grower 2-12 intact, No motor deficit, No sensory deficit Eye Opening: Spontaneous Motor: Obeys Commands Verbal: Oriented GCS Score: 15 Results - Vitals Vitals: Oxygen O2 Source Room air - EKG (time done) 08:36 Rate: Rate (enter#) (56) Rhythm: Sinus bradycardia QRS: Normal. No: LVH Ischemia: ST elevation c/w repol, Q waves. No: ST elevation c/w ischemia, T wave inversion (but diffusely flattened. ) Compare to prior EKG: Old EKG unavailable - Labs Labs: Laboratory Tests 05/01/21 05/01/21 05/01/21 10:30 10:30 10:30 WBC 10.7 RBC 3.82 L Hgb 12.0 Hct 36.6 L MCV 95.8 MCH 31.4 H MCHC 32.8 RDW 12.6 Plt Count 178 MPV 9.9 Neut # (Auto) 8.5 H Lymph # (Auto) 1.3 L [place] # (Auto) 0.7 Eos # (Auto) 0.2 Baso # (Auto) 0.0 Absolute Nucleated RBC 0.00 Nucleated RBC % 0.0 ESR 39 H Sodium 139 Potassium 5.6 H Chloride 106 Carbon Dioxide 28 Anion Gap 5.0 L BUN 37 H Creatinine 1.0 Estimated GFR (MDRD) 53 L Glucose 159 H Calcium 9.9 Magnesium 1.9 Total Bilirubin 0.6 AST 21 ALT 23 Alkaline Phosphatase 69 Total Protein 7.6 Albumin 4.3 Globulin 3.3 Albumin/Globulin Ratio 1.3 Lipase 31 - Rads (name of study) head CT Radiology: Prelim report reviewed (no noted tumors, swelling, mass effect. ), See rad report PD MEDICAL DECISION MAKING - ED course Complexity details: reviewed results, considered differential (improved reasonably with Meclizine. Will also add steroids for presumed inner ear inflammation. The consistency of it (still with movement but more easy now) suggests not just BPV so not clear that Epleys are the answer. ), d/w patient Departure - Departure Disposition: 01 Home, Self Care Clinical Impression: Acute onset of severe vertigo Condition: Stable Record reviewed to determine appropriate education?: Yes Instructions: ED Vertigo Unspecified Follow-Up: [facility] [Provider Group] Enma Fung DO [Provider Admit Priv/Credential] - Prescriptions: Meclizine [Antivert] 25 mg PO Q6H PRN #30 tablet PRN Reason: Vertigo dexAMETHasone [Decadron] 4 mg PO DAILY #5 tablet Comments: Stop your spironolactone as that can have the side effect of vertigo/dizziness. Your electrolytes are looking okay. Your CT scan of the head did not show any obvious bleeding swelling or mass-effect. The most likely cause of your dizziness is inflammation or dysfunction of the inner ear. This can be inflammatory at times. We can treat it with meclizine motion sickness medicine every 6 hours for symptoms. I would take this regularly for the next several days to week as symptoms improve overall. We will also use a low-dose steroid called dexamethasone to see if it helps with inflammation of the inner ear. You can still try the physical therapy suggested by your primary care though your symptoms sound less likely to be otoliths/calcifications in the inner ear. That is really what the physical therapy is targeted towards. I transmitted your prescriptions to [facility] in [place]. Discharge Date/Time: 05/01/21 12:31
[2021-05-01] MEDS ORDERED: MECLIZINE 12.5 MG TABLET PO STA (10:18)
[2021-05-01 10:46] LABS: BASOPHILS % (AUTO) 0.4 %; EOSINOPHILS # (AUTO) 0.2 10^3/uL (0.0-0.7); EOSINOPHILS % (AUTO) 1.6 %; HCT - HEMATOCRIT 36.6 % (37.0-47.0); LYMPHOCYTES # (AUTO) 1.3 10^3/uL (1.5-3.5); LYMPHOCYTES % (AUTO) 12.1 %; MEAN CORPUSCULAR HEMOGLOBIN 31.4 pg (27.0-31.0); MEAN CORPUSCULAR HGB CONC 32.8 g/dL (32.0-36.0); MEAN CORPUSCULAR VOLUME 95.8 fL (81.0-99.0); MEAN PLATELET VOLUME 9.9 fL (7.9-10.8); MONOCYTES # (AUTO) 0.7 10^3/uL (0.0-1.0); MONOCYTES % (AUTO) 6.2 %; NEUTROPHILS # (AUTO) 8.5 10^3/uL (1.5-6.6); NEUTROPHILS % (AUTO) 79.3 %; PLT - PLATELET COUNT 178 10^3/uL (130-450); RED BLOOD COUNT 3.82 10^6/uL (4.20-5.40); RED CELL DISTRIBUTION WIDTH 12.6 % (12.0-15.0); WHITE BLOOD COUNT 10.7 x10^3/uL (4.8-10.8)
[2021-05-01 10:55] LABS: ALBUMIN 4.3 g/dL (3.2-5.5); ALBUMIN/GLOBULIN RATIO 1.3 (1.0-2.2); BILIRUBIN,TOTAL 0.6 mg/dL (0.2-1.0); CALCIUM 9.9 mg/dL (8.5-10.3); MAGNESIUM 1.9 mg/dL (1.7-2.8); POTASSIUM 5.6 mmol/L (3.5-5.0); TOTAL PROTEIN 7.6 g/dL (6.7-8.2)
--- NOTE | 2021-05-01 11:16 | CT Report ---
PROCEDURE: HEAD WO INDICATIONS: dizziness for 2 weeks, worsening TECHNIQUE: Noncontrast 4.5 mm thick angled axial sections acquired from the foramen magnum to the vertex. For r adiation dose reduction, the following was used: automated exposure control, adjustment of mA and/or kV according to patient size. COMPARISON: None. FINDINGS: Image quality: There is streak artifact seen through the skull base. CSF spaces: Basal cisterns are patent. No extra-axial fluid collections. Ventricles are normal in size and shape. Brain: No midline shift. No intracranial masses or hemorrhage. Hope-white matter interface is norm al. Skull and face: Calvarium and visualized facial bones are intact, without suspicious lesions. 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 Sinuses: Visualized sinuses and mastoids are clear. IMPRESSION: Noncontrast head CT study within normal limits for age, without an imaging explanation found for the patient's presenting clinical history. Reviewed by: Sadiq Rodriguez MD on 05/01/2021 10:15 AM QUIANA Approved by: Sadiq Rodriguez MD on 05/01/2021 10:15 AM QUIANA Station ID: [id number]
[2021-05-01] MEDS ORDERED: DEXAMETHASONE 10 MG/ML VIAL PO STA (11:47)
[2021-05-01] MEDS ORDERED: CHERRY SYRUP 10 ML UDC PO ONE (11:47)
[2021-05-01 12:08] VITALS: BP 132/50
== END 2021-05-01 12:31 | disposition home or self-care (01) ==
LOC: EDUNIT# → ED 08:23
DX: R42 Dizziness and giddiness (principal); R07.89 Other chest pain; R06.00 Dyspnea, unspecified; R00.1 Bradycardia, unspecified; I25.10 Atherosclerotic heart disease of native coronary artery without angina pectoris; Z95.5 Presence of coronary angioplasty implant and graft; I10 Essential (primary) hypertension; E11.9 Type 2 diabetes mellitus without complications; Z79.84 Long term (current) use of oral hypoglycemic drugs; Z79.82 Long term (current) use of aspirin
CPT/HCPCS: 36415; 70450; 80053; 83690; 83735; 85025; 85651; 93005; 99284; A9270

== ENCOUNTER 2021-08-06 09:45 | Outpatient (CLI) | payer MEDICARE ==
[2021-08-06 12:44] LABS: BASOPHILS % (AUTO) 0.4 %; EOSINOPHILS # (AUTO) 0.2 10^3/uL (0.0-0.7); EOSINOPHILS % (AUTO) 2.3 %; HCT - HEMATOCRIT 38.9 % (37.0-47.0); HGB - HEMOGLOBIN 12.3 g/dL (12.0-16.0); LYMPHOCYTES # (AUTO) 1.5 10^3/uL (1.5-3.5); LYMPHOCYTES % (AUTO) 17.9 %; MEAN CORPUSCULAR HEMOGLOBIN 29.9 pg (27.0-31.0); MEAN CORPUSCULAR HGB CONC 31.6 g/dL (32.0-36.0); MEAN CORPUSCULAR VOLUME 94.6 fL (81.0-99.0); MEAN PLATELET VOLUME 10.6 fL (7.9-10.8); MONOCYTES # (AUTO) 0.6 10^3/uL (0.0-1.0); MONOCYTES % (AUTO) 7.3 %; NEUTROPHILS # (AUTO) 5.9 10^3/uL (1.5-6.6); NEUTROPHILS % (AUTO) 71.9 %; PLT - PLATELET COUNT 213 10^3/uL (130-450); RED BLOOD COUNT 4.11 10^6/uL (4.20-5.40); RED CELL DISTRIBUTION WIDTH 12.4 % (12.0-15.0); WHITE BLOOD COUNT 8.2 x10^3/uL (4.8-10.8)
[2021-08-06 13:02] LABS: ALBUMIN 4.2 g/dL (3.2-5.5); ALBUMIN/GLOBULIN RATIO 1.3 (1.0-2.2); ALKALINE PHOSPHATASE 81 IU/L (42-121); ALT ALANINE AMINOTRANSFERASE 19 IU/L (10-60); AST ASPARTATE AMINOTRANSFERASE 18 IU/L (10-42); BILIRUBIN,TOTAL 0.8 mg/dL (0.2-1.0); BUN - BLOOD UREA NITROGEN 25 mg/dL (6-20); CALCIUM 9.9 mg/dL (8.5-10.3); CARBON DIOXIDE - CO2 30 mmol/L (21-32); CHLORIDE 100 mmol/L (101-111); CHOL/HDL RATIO 3.2 (<4.4); CHOLESTEROL 120 mg/dL; GFR - MDRD 53 (>89); GLUCOSE 198 mg/dL (70-100); HDL CHOLESTEROL 38 mg/dL; LDL CHOLESTEROL,CALCULATED 59 mg/dL; LDL/HDL RATIO 1.6 (<4.4); POTASSIUM 4.5 mmol/L (3.5-5.0); SODIUM 139 mmol/L (135-145); TOTAL PROTEIN 7.5 g/dL (6.7-8.2); TRIGLYCERIDES 113 mg/dL; VLDL CHOLESTEROL 23 mg/dL
[2021-08-06 13:05] LABS: ESTIMATED AVERAGE GLUCOSE 223 mg/dL (70-100); HEMOGLOBIN A1c% 9.4 % (4.27-6.07)
== END 2021-08-06 23:59 | disposition home or self-care (01) ==
LOC: LAB.WCP 09:45
PROVIDERS: ATTEND Family Medicine
DX: E11.9 Type 2 diabetes mellitus without complications (principal)
CPT/HCPCS: 36415; 80053; 80061; 83036; 83721; 85025

== ENCOUNTER 2021-10-26 08:00 | Outpatient (CLI) | payer MEDICARE ==
[2021-10-26 13:19] LABS: ALBUMIN 4.2 g/dL (3.2-5.5); ALBUMIN/GLOBULIN RATIO 1.3 (1.0-2.2); ALKALINE PHOSPHATASE 73 IU/L (42-121); ALT ALANINE AMINOTRANSFERASE 20 IU/L (10-60); AST ASPARTATE AMINOTRANSFERASE 21 IU/L (10-42); BILIRUBIN,TOTAL 0.5 mg/dL (0.2-1.0); BUN - BLOOD UREA NITROGEN 30 mg/dL (6-20); CALCIUM 9.9 mg/dL (8.5-10.3); CARBON DIOXIDE - CO2 30 mmol/L (21-32); CHLORIDE 103 mmol/L (101-111); CHOL/HDL RATIO 2.8 (<4.4); CHOLESTEROL 98 mg/dL; GFR - MDRD 53 (>89); GLUCOSE 98 mg/dL (70-100); HDL CHOLESTEROL 35 mg/dL; LDL CHOLESTEROL,CALCULATED 48 mg/dL; LDL/HDL RATIO 1.4 (<4.4); POTASSIUM 4.2 mmol/L (3.5-5.0); SODIUM 142 mmol/L (135-145); TOTAL PROTEIN 7.5 g/dL (6.7-8.2); TRIGLYCERIDES 74 mg/dL; VLDL CHOLESTEROL 15 mg/dL
[2021-10-26 13:46] LABS: ESTIMATED AVERAGE GLUCOSE 177 mg/dL (70-100); HEMOGLOBIN A1c% 7.8 % (4.27-6.07)
== END 2021-10-26 23:59 ==
LOC: LAB.WCP 08:00
PROVIDERS: ATTEND Family Medicine
DX: E11.9 Type 2 diabetes mellitus without complications (principal)
CPT/HCPCS: 36415; 80053; 80061; 83036; 83721